=== PATIENT | female | born 1960 | race Caucasian/White ===

== ENCOUNTER → 2023-11-23 08:55 | Outpatient (REF) | payer OTHER, SELFPAY | LOC: RAD 08:55 | PROVIDERS: ATTENDING PHYSICIAN Internal Medicine Medical Oncology; FAMILY PHYSICIAN Family Medicine; OTHER PHYSICIAN Chiropractor; OTHER PHYSICIAN Specialist | DX: C79.51 Secondary malignant neoplasm of bone (principal); C50.412 Malignant neoplasm of upper-outer quadrant of left female breast | CPT/HCPCS: 78306; A9503 ==

== ENCOUNTER → 2024-03-17 10:16 | Outpatient (REF) | payer OTHER, SELFPAY | LOC: RAD 10:16 | PROVIDERS: ATTENDING PHYSICIAN Urology; FAMILY PHYSICIAN Family Medicine; OTHER PHYSICIAN Internal Medicine Medical Oncology; OTHER PHYSICIAN Specialist; REFERRING PHYSICIAN Internal Medicine Gastroenterology | DX: N39.0 Urinary tract infection, site not specified (principal) | CPT/HCPCS: 76770 ==

== ENCOUNTER → 2024-08-11 14:58 | Outpatient (REF) | payer OTHER, SELFPAY | LOC: WDC 14:58 | PROVIDERS: ATTENDING PHYSICIAN Internal Medicine Medical Oncology; FAMILY PHYSICIAN Family Medicine | DX: Z12.31 Encounter for screening mammogram for malignant neoplasm of breast (principal); C50.412 Malignant neoplasm of upper-outer quadrant of left female breast | CPT/HCPCS: 77063; 77067 ==

== ENCOUNTER → 2024-08-17 08:20 | Outpatient (REF) | payer OTHER, SELFPAY | LOC: WDC 08:20 | PROVIDERS: ATTENDING PHYSICIAN Internal Medicine Medical Oncology; FAMILY PHYSICIAN Family Medicine | DX: R92.8 Other abnormal and inconclusive findings on diagnostic imaging of breast (principal) | CPT/HCPCS: 77065 ==

== ENCOUNTER 2025-08-31 09:14 | Emergency (ER) | payer OTHER, SELFPAY ==
[2025-08-31 09:16] VITALS: BP 149/82
--- NOTE | 2025-08-31 11:48 | ED.GENMED ---
History of Present Illness
<GARETH Peters - Last Filed: 09/03/25 11:58>
General
Chief Complaint: DVT/Possible Blood Clot
Source: patient
Exam Limitations: none
Time Seen by Provider: 08/31/25 10:57
Nursing documentation reviewed up to this point in time: agreed with
History of Present Illness
History of Present Illness:
Patient is a 65-year-old female with metastatic breast cancer presents to the ER complaining of right Pain for the past 2 weeks. She has had ongoing issues with this right ankle and in fact recently had an ankle joint aspiration done at [facility]
August 08. She has a diagnosis of ankle joint effusions and mild posterior tibial tendon tenosynovitis. She has had increasing pain however the right For the past 2 weeks which is gotten worse. She denies any chest pain shortness of breath fever
chills. Patient had ultrasound prior to my exam here which does show a right lower extremity DVT involving the peroneal vein. She is followed at [facility] by DR Dominique Watson.
Past History
<GARETH Peters - Last Filed: 09/03/25 11:58>
Past History
ED Past Medical History: Cancer (Breast), GERD and Other (Pelvic floor dysfunction, recurrent cystitis, thoracic outlet syndrome, brachial plexopathy, Martinez's esophagus)
ED Past Surgical History: Cholecystectomy, Gynecological, Tonsilectomy and Other (Pelvic floor dysfunction, breast cancer (lumpectomy))
Social History
Tobacco: Non-smoker
Alcohol: None
Drug: None
Personal:
Living: with family
Phy Exam
<GARETH Peters - Last Filed: 09/03/25 11:58>
General Physical Exam
General Presentation: no apparent distress
General age: appears stated age
General Skin: warm and dry
General Habitus: normal
General Mental: alert
General Hydration: appears well hydrated
Cardiovascular Exam
Cardiovascular Exam: regular rate/rhythm, no murmur and normal peripheral pulses
Pulmonary Exam
Pulmonary Exam: lungs clear and no respiratory distress
Neurological Exam
Neurological Exam: alert and oriented x3
Musculoskeletal Exam
Musculoskeletal Exam: other (Right lower extremity strong pulses mildly tender to right lateral calf minimal swelling strong distal pulses normal sensation no erythema to the ankle or foot)
Skin Exam
Skin Exam: normal color and warm/dry
Psychiatric Exam
Psychiatric Exam: normal mood/affect
Course
<GARETH Peters - Last Filed: 09/03/25 11:58>
Orders/Labs/Results
Orders:
Orders
08/31/25 11:00
Venous Doppler Lwr Ext Rt [US Periph Venous LOWER Ext RT] Urgent
Comment:
Reason For Exam: swelling to calf
08/31/25 12:36
Complete Blood Count/With Diff Urgent
Comprehensive Metabolic Panel Urgent
08/31/25 14:57
CT Head W/o Iv Contrast Urgent
Comment:
Reason For Exam: headache
08/31/25 15:25
Acetaminophen [Tylenol] 650 mg PO NOW STA
Abnormal Lab Results
08/31/25
12:36
MCHC 31.7 L g/dL
(33.0-37.0)
Alkaline Phosphatase 188 H U/L
(38-126)
08/31/25 12:36
08/31/25 12:36
Vital Signs
Initial and Last Documented VS:
Initial Vital Signs
Temp Pulse Resp BP Pulse Ox
98.5 F 98 20 149/82 100
08/31/25 09:16 08/31/25 09:16 08/31/25 09:16 08/31/25 09:16 08/31/25 09:16
Last Documented Vital Signs
Temp Pulse Resp BP Pulse Ox
98.5 F 88 20 132/74 99
08/31/25 09:16 08/31/25 19:34 08/31/25 19:34 08/31/25 19:34 08/31/25 19:34
Turbo Generator Oiler consulted with Physician
Turbo Generator Oiler consulted with physician?: Yes
Name of Physician Consulted: Kayla
<Monica Garza, DO - Last Filed: 08/31/25 19:34>
Orders/Labs/Results
Orders:
Orders
08/31/25 11:00
Venous Doppler Lwr Ext Rt [US Periph Venous LOWER Ext RT] Urgent
Comment:
Reason For Exam: swelling to calf
08/31/25 12:36
Complete Blood Count/With Diff Urgent
Comprehensive Metabolic Panel Urgent
08/31/25 14:57
CT Head W/o Iv Contrast Urgent
Comment:
Reason For Exam: headache
08/31/25 15:25
Acetaminophen [Tylenol] 650 mg PO NOW STA
Abnormal Lab Results
08/31/25
12:36
MCHC 31.7 L g/dL
(33.0-37.0)
Alkaline Phosphatase 188 H U/L
(38-126)
08/31/25 12:36
08/31/25 12:36
Vital Signs
Initial and Last Documented VS:
Initial Vital Signs
Temp Pulse Resp BP Pulse Ox
98.5 F 98 20 149/82 100
08/31/25 09:16 08/31/25 09:16 08/31/25 09:16 08/31/25 09:16 08/31/25 09:16
Last Documented Vital Signs
Temp Pulse Resp BP Pulse Ox
98.5 F 88 20 132/74 99
08/31/25 09:16 08/31/25 19:34 08/31/25 19:34 08/31/25 19:34 08/31/25 19:34
<GARETH Peters - Last Filed: 09/03/25 11:58>
MDM/Problems Addressed
Differential Diagnosis Includes:
Not limited to calf pain muscle pain DVT
MDM/Problems Addressed:
Patient is a 65-year-old with metastatic breast cancer presents for right calf pain for the past 2 weeks. She said chronic issues with this ankle area however it is the Pain that brought her here to the ER. She is followed at [facility]. She denies any
chest pain shortness of breath. Her ultrasound does show a a peroneal vein DVT. will check basic labs and plan to discharge on anticoagulation. She is no acute distress and well-appearing not short of breath nontachycardic nonhypoxic.
I did speak with patient's oncologist Dr. Watson who is agreemnent with starting anticoagulation ok with Eliquis.
Patient very anxious about diagnosis. I sat with patient for prolonged period of time and answered all of her questions. Patient was also given education on anticoagulation by the pharmacist. Case management was also consulted and evaluated
patient for anticoagulation pricing. The patient is anxious she denies any acute shortness of breath and she is nontoxic here.
Case reviewed with ED physician who also evaluated pt at bedside.
patient mentioned that she has had a headache. She is in no acute distress. nml neuro exam. ambulatory with a steady gait here in the ED. family member at bedside. Will do a CAT scan. If negative plan to dc/ home
Pt took a dose of her eliquis here (family member brought her script)
Chronic conditions affecting care:
Metastatic breast cancer
<GARETH Peters - Last Filed: 09/03/25 11:58>
*Radiology
Radiology exam reviewed: radiology read reviewed
*Pulse Oximetry
SaO2: 100
Oxygen Mode of Delivery: Room air
Patient hypoxic: no
*Critical Care Note
Total Time (30-74mins, 75-104mins- exclusive of procedures): Not Applicable
<GARETH Peters - Last Filed: 09/03/25 11:58>
Patient Management
Discussion with other providers: Winder Tender (pts oncologist as documented above )
<Monica Garza DO - Last Filed: 08/31/25 19:34>
Update Note
Update Note:
CT head negative. Will discharge. Patient expressed understanding of plan and has no questions at the current time. is present at bedside during discharge.
ED Attending Note
<GARETH Peters - Last Filed: 09/03/25 11:58>
-
Portions of this chart may have been created with voice recognition software.� Occasional wrong word or��sound alike� substitutions may have occurred due to the inherent limitations of voice recognition software.
<Monica Garza DO - Last Filed: 08/31/25 19:34>
ED Attending Note
Patient seen and examined by attending physician: Yes
I performed the substantive portion of visit, reviewed & personally made and approve the management plan that is documented in note by myself or KAREN.: Yes
I performed a history and physical exam of patient and discussed management with resident, I reviewed resident's note and agree with documented findings and plan of care.: Yes
ED Attending Note:
65-year-old female presents the ER for further evaluation of severe pain in her right calf. Patient does have a history of metastatic breast cancer, under treatment at [facility]. She has difficulty tolerating multiple medications and has had a hard
time keeping her pain under control at home. She denies chest pain or shortness of breath. Patient reports that she had a headache a few days ago that was severe and associated with vomiting, she reports that she was in bed all day and that this
was very out of character for her. She states that she did have neuroimaging of her brain in June which was an MRI-no known brain mets related to her breast cancer. Vital signs reviewed, patient is awake, alert, loquacious, appears in no
acute distress, moving all extremities symmetrically without focal deficit, GCS is 15, no increased work of breathing. I discussed with patient presence of DVT and treatment of same. I spent more than 15 minutes with the patient reviewing test
results and treatment plan. Nurse practitioner has already been able to speak with her oncologist who is in agreement with the treatment plan. I discussed with patient limited utility of CT of the chest at the current time as she has no symptoms
in her chest and that Eliquis would be appropriate treatment even if she were to have small pulmonary emboli in her chest (she is not hypoxic, not tachycardic, no increased work of breathing). I did discuss with patient concern for unusual
character of headache the other day, although she apparently has no current symptoms. Will obtain noncontrast CT of the head prior to initiation of Eliquis. She agrees with plan at current.
Discharge Plan
Departure
Patient Disposition: Home (Routine Discharge)
Date of Disposition: 08/31/25
Time of Disposition: 19:25
Patient with high blood pressure during this ER visit?: Yes
Discharge Problem:
DVT (deep venous thrombosis)
Instructions: Deep Vein Thrombosis (Blood Clots in the Legs) (DC), BLOOD PRESSURE
Prescriptions:
New
Eliquis 5 mg tablet
See Rx Instructions .ROUTE .COMPLEX Qty: 90 0RF
Rx Instructions:
10 mg twice daily for 7 days followed by 5 mg twice daily
No Action
famotidine [Pepcid] 40 MG tablet
40 mg PO BIDPRN PRN (Reason: Brachial and Thoracic spasms)
lansoprazole 15 MG capsule,delayed release(DR/EC)
15 mg PO DAILY
magnesium hydroxide [Milk of Magnesia] 400 MG/5 ML suspension
400 mg PO DAILY
diazepam 5 MG tablet
5 mg PO TID PRN (Reason: Brachial & Thoracic spasms)
chlordiazepoxide-methscopolamn 1 EACH capsule
1 cap PO Q4HPRN PRN (Reason: Biliary & IBS spasms)
fluconazole 100 MG tablet
100 mg PO PRN PRN (Reason: candidiasis infections)
lidocaine [Lidocare] 1 EACH adhesive patch,medicated
1 ea TP [id number] PRN (Reason: Brachial/Thoracic Spasms)
sucralfate [Carafate] 1 GM/10 ML suspension
1 gm PO BIDPRN PRN (Reason: gerd)
mesalamine [Canasa] 500 MG suppository
500 mg NE PRN PRN (Reason: Bowel inflammation)
sulfamethoxazole-trimethoprim 1 TABLET tablet
1 tab PO BIDPRN PRN (Reason: Urinary/Bladder Infections)
phenazopyridine 100 MG tablet
100 mg PO TIDPRN PRN (Reason: Urinary spasms)
baclofen 10 MG tablet
10 mg PO DAILYPRN PRN (Reason: Brachial/Thoracic spasms)
oseltamivir 75 MG capsule
75 mg PO BID Qty: 10 0RF
Referrals:
Doreen Terry MD [Family Provider, Family Practice]
Activity Restrictions/Additional Instructions:
As discussed take Eliquis as described.
Keep leg elevated.
Follow-up with your family doctor and oncologist in the next several days(next week) return if any worsening of symptoms include increasing leg pain,swelling, shortness of breath.
Interventions
Interventions:
*Risk Screen - Suicide Last Done: 08/31/25 09:16
*General Assessment Last Done: 08/31/25 09:16
*Neglect/Abuse Screening Last Done: 08/31/25 09:16
*Nursing Disposition Last Done: 08/31/25 19:38
ED- Cardiac Assessment Last Done: 08/31/25 11:12
ED- Pulmonary Assessment Last Done: 08/31/25 11:12
ED-Peripheral Vascular Assessment Last Done: 08/31/25 11:13
ED-Skin Assessment Last Done: 08/31/25 11:12
Discharge Date and Time
Discharge Date/Time: 08/31/25 20:45
Print Language: WELSH
[2025-08-31 12:54] LABS: Hematocrit 40.7 % (37.0-47.0); Hemoglobin 12.9 g/dL (12.0-16.0); Mean Corp Hgb Conc. 31.7 g/dL (33.0-37.0); Mean Corpuscular Volume 92.7 fL (81.0-99.0); Nucleated Red Blood Cells % 0 %; Platelet Count 277 10^3/uL (130-400); Red Cell Dist. Width 13.7 % (11.5-14.5)
[2025-08-31 13:24] LABS: ALT (SGPT) 23 U/L (0-35); AST (SGOT) 21 U/L (14-36); Albumin 4.1 g/dl (3.5-5.0); Alkaline Phosphatase 188 U/L (38-126); Blood Urea Nitrogen 16 mg/dl (7-17); Calcium 9.2 mg/dl (8.4-10.2); Carbon Dioxide 26 mmol/L (22-30); Chloride 106 mmol/L (98-107); Glucose 94 mg/dl (70-99); Potassium 4.5 mmol/L (3.5-5.1); Sodium 139 mmol/L (135-145); Total Protein 6.9 g/dl (6.3-8.2); eGFR > 60.00
--- NOTE | 2025-08-31 15:08 | EDCM ---
Was asked to see pt, she has new DVT and will be prescribed Eliquis. Met with pt bedside, she was already given Eliquis coupons by Pharmacist. Instructed pt she can use free 30 day supply coupon but will not be able to use $10 co pay card as she is
on Medicare.
I called her pharmacy [facility] in [place] to get a hahn for her. I was told the maximum cost would be $150.00 for a 37 day supply. They asked if the script could be resent, not as a starter pack. It will be less expensive that way. Pt made aware
and discussed with Caroline SERVIN who will resend script.
Pt's son is coming to pick her up after she has CT done. No further CM needs at this time.
[2025-08-31] MEDS: TYLENOL 650 MG PO (15:30)
[2025-08-31 19:34] VITALS: BP 132/74
== END 2025-08-31 20:45 | disposition home or self-care (01) ==
LOC: EMR 09:14
PROVIDERS: Nurse Practitioner; EMERGENCY PHYSICIAN Emergency Medicine; FAMILY PHYSICIAN Family Medicine
DX: I82.451 Acute embolism and thrombosis of right peroneal vein (principal); M65.90 Unspecified synovitis and tenosynovitis, unspecified site; C50.911 Malignant neoplasm of unspecified site of right female breast; K21.9 Gastro-esophageal reflux disease without esophagitis; K22.70 Barrett's esophagus without dysplasia; Z79.01 Long term (current) use of anticoagulants
CPT/HCPCS: 99284; 70450; 80053; 85025; 93971